=== PATIENT | female | born 1940 | race Asian ===

== ENCOUNTER 2017-08-03 18:31 | Inpatient (IN) | payer MEDICARE ==
[~2017-08-03] VITALS: Ht 154.9 cm; Wt 55.8 kg
[~2017-08-03 18:31] MED LIST: ALBUTEROL0.09 MG/A4 IH; ANT12.5 PO; ASPIR LOW81 MG PO; BG MC; CAR30 PO; CLINDAMYCI600 MG/50 IV; COL100 PO; DEXAMETHASONE4 MG PO; DEXPF IV; FISH OIL1 CAP PO; HUMULIN R100 U/1 M1 SC; IPRATROPIUM BROM3 M2 HHN; LAC PO; LEV250PM IV; LIPI10 PO; METOCLOPRAMIDE10 MG PO; METOPROLOL TART25 M1 PO; MIRUD GT; OXYC PO; RXMED PO; SEN PO; SOL40I IV; TYL325 PO; VIREAD300 MG PO; XARELTO20 M1 PO; ZOCOR20 MG PO; ZOF4 PO
[2017-08-03 18:34] VITALS: Ht 154.9 cm; Wt 55.8 kg
[2017-08-03 19:54] LABS: UA SPECIFIC GRAVITY >=1.030 (1.005-1.035); microscopic required? YES; urine erythrocyte TRACE (NEGATIVE)
[2017-08-03 20:01] LABS: BASOPHIL % 0 % (0-2); PLATELET COUNT 233 x10^3mcL (130-400); RED CELL DISTRIBUTION WIDTH 14.9 % (11.5-14.5)
[2017-08-03] MEDS ORDERED: LACL PO (20:03)
[2017-08-03] MEDS ORDERED: DILANTIN100 MG PO (20:05)
[2017-08-03] MEDS ORDERED: FLORASTOR1 CAP PO (20:06)
[2017-08-03] MEDS ORDERED: KEPPRA1000 M1 PO (20:06)
[2017-08-03] MEDS ORDERED: COUMADIN2 MG PO (20:06)
[2017-08-03 20:07] LABS: CALCIUM 7.5 mg/dL (8.5-10.1); CARBON DIOXIDE 20.7 mmol/L (21-32); CHLORIDE SERUM 103 mmol/L (98-107); CREATININE SERUM 0.9 mg/dL (0.6-1.0); GLUCOSE SERUM 235 mg/dL (74-106); POTASSIUM SERUM 3.8 mmol/L (3.5-5.1); SODIUM SERUM 136 mmol/L (136-145)
[2017-08-03] MEDS ORDERED: PEPCID20 MG PO (20:07)
[2017-08-03] MEDS ORDERED: MASON NATURAL1000 IU PO (20:07)
[2017-08-03] MEDS ORDERED: FIBERSOURCE HN PO (20:07)
[2017-08-03 20:31] LABS: ALKALINE PHOSPHATASE 169 U/L (46-116); ALT/SGPT 104 U/L (14-59); AST/SGOT 91 U/L (15-37); BILIRUBIN TOTAL 0.34 mg/dL (0.20-1.00); CHOLESTEROL 166 mg/dL (<200); HDL CHOLESTEROL 37 mg/dL (40-60)
[2017-08-03 20:33] LABS: ALBUMIN 2.1 g/dL (3.4-5.0); TOTAL PROTEIN, SERUM 5.1 g/dL (6.4-8.2)
[2017-08-03 22:14] VITALS: BP 113/42
[2017-08-03 22:16] LABS: MAGNESIUM 1.8 mg/dL (1.8-2.4)
[2017-08-03 22:43] LABS: FREE T4 1.1 ng/dL (0.76-1.46); FREE THYROXINE INDEX 2.2 ug/dL (1.4-4.5); T4(THYROXINE) 6.3 ug/dL (4.7-13.3)
[2017-08-04 06:16] LABS: PLATELET COUNT 271 x10^3mcL (130-400)
[2017-08-04 06:48] LABS: BASOPHIL % 0 % (0-2); RED CELL DISTRIBUTION WIDTH 14.9 % (11.5-14.5)
[2017-08-04 07:08] LABS: CALCIUM 8.2 mg/dL (8.5-10.1); CARBON DIOXIDE 23.5 mmol/L (21-32); CHLORIDE SERUM 108 mmol/L (98-107); CREATININE SERUM 0.4 mg/dL (0.6-1.0); POTASSIUM SERUM 3.6 mmol/L (3.5-5.1); SODIUM SERUM 142 mmol/L (136-145)
[2017-08-04 08:54] LABS: GLUCOSE SERUM 136 mg/dL (74-106)
[2017-08-04 09:19] VITALS: BP 94/63
[2017-08-04 13:10] VITALS: BP 102/64
[2017-08-04 17:00] VITALS: BP 102/69
[2017-08-04 21:33] VITALS: BP 136/52
[2017-08-05 05:25] VITALS: BP 115/62
[2017-08-05 06:50] LABS: BASOPHIL % 0.3 % (0-2); PLATELET COUNT 251 x10^3mcL (130-400)
[2017-08-05 07:07] LABS: RED CELL DISTRIBUTION WIDTH 14.6 % (11.5-14.5)
[2017-08-05 08:36] LABS: CALCIUM 8.6 mg/dL (8.5-10.1); CARBON DIOXIDE 22.6 mmol/L (21-32); CHLORIDE SERUM 106 mmol/L (98-107); CREATININE SERUM 0.4 mg/dL (0.6-1.0); GLUCOSE SERUM 115 mg/dL (74-106); MAGNESIUM 1.8 mg/dL (1.8-2.4); PHOSPHOROUS 3.1 mg/dL (2.5-4.9); POTASSIUM SERUM 3.6 mmol/L (3.5-5.1)
[2017-08-05 09:13] LABS: SODIUM SERUM 141 mmol/L (136-145)
[2017-08-05 09:18] VITALS: BP 111/70
[2017-08-05 13:52] VITALS: BP 115/75
[2017-08-05 16:57] VITALS: BP 120/62
[2017-08-05 22:32] VITALS: BP 125/69
[2017-08-06 06:12] VITALS: BP 109/80
[2017-08-06 06:46] LABS: BASOPHIL % 0.1 % (0-2); PLATELET COUNT 288 x10^3mcL (130-400); RED CELL DISTRIBUTION WIDTH 14.2 % (11.5-14.5)
[2017-08-06 07:27] LABS: CALCIUM 8.4 mg/dL (8.5-10.1); CARBON DIOXIDE 23.4 mmol/L (21-32); CHLORIDE SERUM 106 mmol/L (98-107); CREATININE SERUM 0.4 mg/dL (0.6-1.0); GLUCOSE SERUM 129 mg/dL (74-106); MAGNESIUM 1.7 mg/dL (1.8-2.4); PHOSPHOROUS 3.1 mg/dL (2.5-4.9); POTASSIUM SERUM 3.4 mmol/L (3.5-5.1); SODIUM SERUM 141 mmol/L (136-145)
[2017-08-06 08:23] VITALS: BP 136/93
[2017-08-06 13:13] VITALS: BP 130/91
[2017-08-06] MEDS ORDERED: CLINDAMYCIN HC300 MG PO (13:40)
[2017-08-06] MEDS ORDERED: LAC PO (13:40)
[2017-08-06] MEDS ORDERED: IMODIUM MULTI-S1 TAB PO (13:42)
== END 2017-08-06 17:20 | disposition home or self-care (01) | DRG 871 ==
LOC: ED 18:31 → DU 21:06
PROVIDERS: Emergency Medicine; Family Medicine
DX: A41.9 Sepsis, unspecified organism (principal); J69.0 Pneumonitis due to inhalation of food and vomit; G93.41 Metabolic encephalopathy; N17.0 Acute kidney failure with tubular necrosis; E43 Unspecified severe protein-calorie malnutrition; G82.50 Quadriplegia, unspecified; N39.0 Urinary tract infection, site not specified; I42.2 Other hypertrophic cardiomyopathy; E78.00 Pure hypercholesterolemia, unspecified; M19.90 Unspecified osteoarthritis, unspecified site; E86.0 Dehydration; R74.0 Nonspecific elevation of levels of transaminase and lactic acid dehydrogenase [LDH]; E83.51 Hypocalcemia; G40.909 Epilepsy, unspecified, not intractable, without status epilepticus; Z53.29 Procedure and treatment not carried out because of patient's decision for other reasons; Z88.0 Allergy status to penicillin; Z88.2 Allergy status to sulfonamides; Z93.1 Gastrostomy status; Z68.24 Body mass index [BMI] 24.0-24.9, adult; E87.6 Hypokalemia; E83.42 Hypomagnesemia; E78.2 Mixed hyperlipidemia; Z85.841 Personal history of malignant neoplasm of brain; Z85.118 Personal history of other malignant neoplasm of bronchus and lung
CPT/HCPCS: 83880; 84439; J0696; J3490; J7030; J7620; Q0092